=== PATIENT | male | born 1925 | race Caucasian/White ===

== ENCOUNTER → 2016-12-01 13:24 | Outpatient (CLI) | payer MEDICARE ==
[2016-08-18 12:05] VITALS: BMI 20.1
[~2016-12-01 13:24] MED LIST: ASPIRIN81 MG PO; BREO ELLIPTA 11 EACH INH; COZAAR50 MG PO; HCTZ25 MG PO; IPRAT-ALBUT 0.5-3 ML UPD; K-TAB10 MEQ PO; LASIX20 MG PO; LEVAQUIN250 MG PO; LEVAQUIN500 MG PO; MIRALAX17 GM PO; MOBIC7.5 MG PO; OMEPRAZOLE20 M1 PO; PRILOSEC10 MG; PRINZIDE 10/12.1 TAB PO; SYMBICORT 16010.2 GM INH; VENTOLIN HFA18 GM INH; ZYLOPRIM100 MG PO; ZYLOPRIM300 MG PO
== END | disposition home or self-care (01) ==
LOC: D.CT 13:24
DX: I71.2 Thoracic aortic aneurysm, without rupture (principal)

== ENCOUNTER 2017-02-24 17:33 | Emergency (ER) | payer MEDICARE ==
[2016-08-18 12:05] VITALS: BMI 20.1
[2017-02-24 18:30] LABS: BASOPHILS 0.3 % (0-2); EOSINOPHILS 2.2 % (0-7); HEMATOCRIT 38.2 % (42.0-54.0); HEMOGLOBIN 11.9 g/dL (13.5-17.5); IMMATURE GRANULOCYTES 0.2 % (0-5); LYMPHOCYTES 8.5 % (15-50); MCH 28.4 pg (26.0-34.0); MCHC 31.2 g/dL (31.0-37.0); MCV 91.2 fL (80.0-100.0); MEAN PLATELET VOLUME 11.4 fL (7.4-10.4); MONOCYTES 14.6 % (2-11); NEUTROPHILS 74.2 % (40-80); RBC 4.19 10x6/uL (4.20-6.10); RDW 14.8 % (11.5-14.5); WBC 9.4 10x3/uL (4.8-10.8)
[2017-02-24 18:50] LABS: PLATELET COUNT 131 10x3/uL (130-400)
[2017-02-24 19:04] LABS: ALBUMIN 3.4 g/dL (3.4-5.0); BILIRUBIN - TOTAL 1.2 mg/dL (0.2-1.3); CALCIUM 9.4 mg/dL (8.5-10.1); CARBON DIOXIDE 32.6 mmol/L (21.0-32.0); CREATININE - SERUM 1.6 mg/dL (0.6-1.3); POTASSIUM - SERUM 4.6 mmol/L (3.5-5.1); PROTEIN - SERUM 6.9 g/dL (6.4-8.2)
[2017-02-24 19:42] LABS: CKMB 2.7 U/L (0.0-3.6); CREATINE KINASE 101 UL (21-232)
[2017-02-24 20:06] LABS: APPEARANCE CLEAR (CLEAR); BILIRUBIN NEGATIVE (NEGATIVE); COLOR YELLOW (YELLOW); GLUCOSE NEGATIVE (NEGATIVE); KETONE NEGATIVE (NEGATIVE); LEUKOCYTE ESTERASE NEGATIVE (NEGATIVE); NITRITE NEGATIVE (NEGATIVE); PROTEIN TRACE mg/dL (NEGATIVE); UROBILINOGEN NORMAL (NORMAL)
== END 2017-02-24 20:39 | disposition home or self-care (01) ==
LOC: D.ER 17:33
PROVIDERS: Emergency Medicine; Physician Assistant Medical
DX: T67.5XXA Heat exhaustion, unspecified, initial encounter (principal); X58.XXXA Exposure to other specified factors, initial encounter; Y93.9 Activity, unspecified